=== PATIENT | female | born 1990 | race Caucasian/White ===

== ENCOUNTER 2016-08-02 11:16 | Emergency (ER) | payer OTHER ==
[~2016-08-02] VITALS: Ht 160 cm; Wt 73.0 kg
[2016-08-02 13:32] LABS: EOSINOPHIL (%) 2.3 % (0-5); EOSINOPHIL COUNT 0.2 K/uL (0-0.3); HEMATOCRIT 35.7 % (36.0-46.0); IMMATURE GRANULOCYTE (%) 0.2 % (0.0-0.7); IMMATURE GRANULOCYTE COUNT 0.1 K/uL; MCH 30.8 PG (29.0-34.0); MCHC 34.2 G/DL (30.0-36.0); MCV 90.2 FL (83-99); MEAN PLAT.VOLUME 9.4 uM^3 (9.5-12.4); MONOCYTE COUNT 0.5 K/uL (0-0.8); NEUTROPHIL (%) 58.8 % (45-76); NEUTROPHIL COUNT 3.9 K/uL (1.8-6.4); PLATELET COUNT 259 K/uL (156-360); RBC DIS.WIDTH-CV 12.1 % (11.8-14.6); RED BLOOD COUNT 3.96 M/uL (3.80-5.20); WHITE BLOOD COUNT 6.6 K/uL (4.1-10.2)
[2016-08-02 13:42] LABS: CHLORIDE 107 mEq/L (99-109); POTASSIUM 4.2 mEq/L (3.7-5.4)
[2016-08-02 13:43] LABS: SODIUM 140 mEq/L (136-147)
[2016-08-02 13:44] LABS: GLUCOSE 97 mg/dL (70-99)
[2016-08-02 13:46] LABS: ANION GAP 11 MEQ/L (2-14)
[2016-08-02 13:48] LABS: GFR ESTIMATE (CALCULATED) > 59 mL/min/
[2016-08-02 13:49] LABS: UREA NITROGEN (BUN) 13 mg/dL (9-23)
[2016-08-02 13:53] LABS: TROP-I INTERPRETATION NEGATIVE; TROPONIN-I < 0.01 ng/mL (0.0-0.30)
[2016-08-02 13:56] LABS: QUANTITATIVE HCG < 4.0 MIU/ML
[2016-08-02 15:38] LABS: D-DIMER ELISA 0.17 mg/L FEU (< 0.57)
[2016-08-02 16:29] VITALS: BP 109/68
== END 2016-08-02 16:31 | disposition home or self-care (01) ==
LOC: EME 11:16
PROVIDERS: Emergency Medicine; Physician Assistant
DX: R07.9 Chest pain, unspecified (principal)
CPT/HCPCS: 71020; 80048; 84484; 84702; 85025; 85379; 93005; 99281; 99284